=== PATIENT | male | born 1995 | race African-American/Black ===

== ENCOUNTER 2017-06-27 11:48 | Emergency (ER) | payer SELFPAY ==
[~2017-06-27] VITALS: Ht 170.2 cm; Wt 80.0 kg
[~2017-06-27 11:48] MED LIST: AUGM875 PO; LORT5TAB PO; Z.0.NO CURRENT MEDS
[2017-06-27 11:50] VITALS: BP 161/97; PULSE 146; RESP 18; TEMP 101.5; O2SAT 95
[2017-06-27 12:38] LABS: AUTOMATED NEUTROPHIL # 6.4 TH/MM3 (1.8-7.7); BASOPHIL % 0.2 % (0.0-2.0); EOSINOPHIL # 0.1 TH/MM3 (0-0.4); EOSINOPHIL % 1.3 % (0.0-4.0); HEMATOCRIT 39.6 % (39.0-51.0); HEMOGLOBIN 13.6 GM/DL (13.0-17.0); LYMPH % 5.6 % (9.0-44.0); LYMPHOCYTE # 0.5 TH/MM3 (1.0-4.8); MEAN CELL VOLUME 86.3 FL (80.0-100.0); MEAN CORPUSCULAR HEMOGLOBIN 29.7 PG (27.0-34.0); MEAN CORPUSCULAR HGB CONC 34.4 % (32.0-36.0); MEAN PLATELET VOLUME 6.9 FL (7.0-11.0); MONO % 13.6 % (0.0-8.0); MONOCYTE # 1.1 TH/MM3 (0-0.9); NEUT % 79.3 % (16.0-70.0); PLATELET COUNT 262 TH/MM3 (150-450); RED BLOOD COUNT 4.59 MIL/MM3 (4.50-5.90); RED CELL DISTRIBUTION WIDTH 11.9 % (11.6-17.2); WHITE BLOOD COUNT 8.1 TH/MM3 (4.0-11.0)
--- NOTE | 2017-06-27 12:49 | RADRPT ---
EXAM DATE/TIME: 06/27/2017 12:23 [place] COMPARISON: No previous studies available for comparison. INDICATIONS : Cough and flu like symptoms for 3 days MEDICAL HISTORY : None. SURGICAL HISTORY : None. ENCOUNTER: Initial ACUITY: 3 days PAIN SCORE: 0/10 LOCATION: Bilateral chest FINDINGS: PA and lateral views of the chest demonstrate the lungs to be symmetrically aerated without evidence of mass, infiltrate or effusion. The cardiomediastinal contours are unremarkable. Osseous structure s are intact. CONCLUSION: No acute cardiopulmonary disease. Kailash Nettles MD on June 27, 2017 at 12:46 Board Certified Radiologist. This report was verified electronically.
[2017-06-27] MEDS ORDERED: VITA10002 PO (12:59)
[2017-06-27] MEDS ORDERED: CHOL10008 (12:59)
[2017-06-27] MEDS ORDERED: LISI-515 PO (12:59)
[2017-06-27 13:04] VITALS: BP 149/83; PULSE 131; RESP 17; TEMP 99.9; O2SAT 97
[2017-06-27 13:04] LABS: ALBUMIN 4.4 GM/DL (3.4-5.0); AST (GOT) 13 U/L (15-37); BICARBONATE 23.5 MEQ/L (21.0-32.0); BLOOD UREA NITROGEN 11 MG/DL (7-18); CALCIUM 9.1 MG/DL (8.5-10.1); CHLORIDE 103 MEQ/L (98-107); CREATININE 1.12 MG/DL (0.60-1.30); GLOMERULAR FILTRATION RATE 100 ML/MIN (>89); GLUCOSE,RANDOM 118 MG/DL (74-106); SODIUM (NA) 136 MEQ/L (136-145)
[2017-06-27 13:07] LABS: ALKALINE PHOSPHATASE 73 U/L (45-117); ALT (GPT) 13 U/L (12-78); TOTAL BILIRUBIN ADULT 0.6 MG/DL (0.2-1.0); TOTAL PROTEIN 8.7 GM/DL (6.4-8.2)
[2017-06-27] MEDS ORDERED: SODIUM CHLOR 0.9% 1000 ML INJ 1,000 ML IV ONE ×2 (13:15→15:00)
[2017-06-27] MEDS ORDERED: IBUPROFEN 800 MG TAB PO ONE (13:15)
--- NOTE | 2017-06-27 13:34 | PD ---
HPI Chief Complaint: Cold / Flu Symptoms Time Seen by Provider: 13:03 Travel History International Travel<30 days: No Contact w/Intl Traveler<30days: No Traveled to known affect area: No History of Present Illness HPI 21-year-old male presents with cold and flu symptoms 24-36 hours. Patient reports fevers, body aches, chills. Patient reports that he has been around people that have had flulike symptoms. Patient also has cough and runny nose. He denies any nausea vomiting diarrhea. He is not taking anything for the symptoms to this point. FOR[facility]LY [facility] Past Medical History Asthma: Yes Hypertension: Yes Medical other: Yes (VERTIGO) Immunizations Current: Yes Influenza Vaccination: No Past Surgical History Appendectomy: Yes Social History Alcohol Use: No Tobacco Use: No Substance Use: No Allergies-Medications (Allergen,Severity, Reaction): Coded Allergies: No Known Allergies (Verified Adverse Reaction, Unknown, 06/27/17) Reported Meds & Prescriptions Reported Meds & Active Scripts Active Tamiflu (Oseltamivir Phosphate) 75 Mg Cap 75 Mg PO BID 5 Days Reported Vitamin B-12 (Cyanocobalamin) 1,000 Mcg Tab 1,000 Mcg PO DAILY Vitamin D3 (Cholecalciferol) 1,000 Unit Cap 1,000 Units DAILY Lisinopril 20 Mg Tab 20 Mg PO DAILY Review of Systems Except as stated in HPI: all other systems reviewed are Neg General / Constitutional: Positive: Fever, Chills HENT: No: Headaches, Neck Pain Cardiovascular: No: Chest Pain or Discomfort, Palpitations Respiratory: No: Cough, Shortness of Breath Gastrointestinal: No: Nausea, Vomiting, Abdominal Pain Genitourinary: Positive: Other (Darker urine than normal.), No: Frequency, Dysuria Musculoskeletal: Positive: Myalgias, No: Weakness Skin: No Rash, No Lesions Neurologic: No: Weakness, Dizziness, Headache, Change in Mentation, Seizures Physical Exam Narrative GENERAL: Well-developed well-nourished male in no acute respiratory distress. SKIN: Focused skin assessment warm/dry. HEAD: Atraumatic. Normocephalic. EYES: Pupils equal and round. No scleral icterus. No injection or drainage. ENT: No nasal bleeding or discharge. Mucous membranes pink and moist. NECK: Trachea midline. No JVD. CARDIOVASCULAR: Sinus tachycardia with a rate of the 120s. No murmur appreciated. RESPIRATORY: No accessory muscle use. Clear to auscultation. Breath sounds equal bilaterally. GASTROINTESTINAL: Abdomen soft, non-tender, nondistended. Hepatic and splenic margins not palpable. MUSCULOSKELETAL: No obvious deformities. No clubbing. No cyanosis. No edema. NEUROLOGICAL: Awake and alert. No obvious cranial nerve deficits. Motor grossly within normal limits. Normal speech. Data Data Last Documented VS Vital Signs Date Time Temp Pulse Resp B/P (MAP) Pulse Ox O2 Delivery O2 Flow Rate FiO2 06/27/17 13:04 99.9 131 17 149/83 (105) 97 Room Air Orders Orders Sepsis Workup Initiated (06/27/17 ) Complete Blood Count With Diff (06/27/17 12:02) Comprehensive Metabolic Panel (06/27/17 12:02) Urinalysis - C+S If Indicated (06/27/17 12:02) Lactic Acid Sepsis Protocol (06/27/17 12:02) Blood Culture (06/27/17 12:02) Iv Access Insert/Monitor (06/27/17 12:02) Influenzae A/B Antigen (06/27/17 12:02) Chest, Pa & Lat (06/27/17 ) Electrocardiogram (06/27/17 ) Sodium Chlor 0.9% 1000 Ml Inj (Ns 1000 M (06/27/17 13:15) Ibuprofen (Motrin) (06/27/17 13:15) Labs Laboratory Tests Test 06/27/17 12:15 06/27/17 13:05 White Blood Count 8.1 TH/MM3 Red Blood Count 4.59 MIL/MM3 Hemoglobin 13.6 GM/DL Hematocrit 39.6 % Mean Corpuscular Volume 86.3 FL Mean Corpuscular Hemoglobin 29.7 PG Mean Corpuscular Hemoglobin Concent 34.4 % Red Cell Distribution Width 11.9 % Platelet Count 262 TH/MM3 Mean Platelet Volume 6.9 FL Neutrophils (%) (Auto) 79.3 % Lymphocytes (%) (Auto) 5.6 % Monocytes (%) (Auto) 13.6 % Eosinophils (%) (Auto) 1.3 % Basophils (%) (Auto) 0.2 % Neutrophils # (Auto) 6.4 TH/MM3 Lymphocytes # (Auto) 0.5 TH/MM3 Monocytes # (Auto) 1.1 TH/MM3 Eosinophils # (Auto) 0.1 TH/MM3 Basophils # (Auto) 0.0 TH/MM3 CBC Comment DIFF FINAL Differential Comment Blood Urea Nitrogen 11 MG/DL Creatinine 1.12 MG/DL Random Glucose 118 MG/DL Total Protein 8.7 GM/DL Albumin 4.4 GM/DL Calcium Level 9.1 MG/DL Alkaline Phosphatase 73 U/L Aspartate Amino Transf (AST/SGOT) 13 U/L Alanine Aminotransferase (ALT/SGPT) 13 U/L Total Bilirubin 0.6 MG/DL Sodium Level 136 MEQ/L Potassium Level 3.5 MEQ/L Chloride Level 103 MEQ/L Carbon Dioxide Level 23.5 MEQ/L Anion Gap 10 MEQ/L Estimat Glomerular Filtration Rate 100 ML/MIN Lactic Acid Level 0.8 mmol/L Urine Color YELLOW Urine Turbidity CLEAR Urine pH 7.0 Urine Specific Barre 1.030 Urine Protein 30 mg/dL Urine Glucose (UA) NEG mg/dL Urine Ketones 10 mg/dL Urine Occult Blood NEG Urine Nitrite NEG Urine Bilirubin NEG Urine Urobilinogen 4.0 MG/DL Urine Leukocyte Esterase NEG Urine RBC 1 /hpf Urine WBC 1 /hpf Urine Squamous Epithelial Cells <1 /hpf Urine Mucus MOD /lpf Microscopic Urinalysis Comment CULT NOT INDICATED MDM Medical Decision Making Medical Screen Exam Complete: Yes Emergency Medical Condition: Yes Differential Diagnosis Influenza versus bronchitis versus viral syndrome Narrative Course 21-year-old male presents with flulike symptoms. Patient has fevers, chills, body aches. The patient has cough and runny nose.. Patient is positive for influenza A. He is within the 48 hour window and will be started on Tamiflu. Diagnosis Primary Impression: Influenza A Additional Instructions: Drink plenty of fluids. Motrin 600-800 mg every 6-8 hours for fever and body aches Med/Other Pt SpecificInfo: Prescription(s) given Scripts Oseltamivir (Tamiflu) 75 Mg Cap 75 MG PO BID for Mgmt Viral Infection for 5 Days, #10 CAP 0 Refills Prov: Norm Ortega MD 06/27/17 Disposition: 01 DISCHARGE HOME Condition: Stable Norm Ortega MD Jun 27, 2017 13:34
[2017-06-27] MEDS ORDERED: OSEL75 PO (13:35)
[2017-06-27 13:48] LABS: BILIRUBIN, URINE NEG (NEG); BLOOD, URINE NEG (NEG); GLUCOSE,URINE NEG (NEG); KETONE, URINE 10 mg/dL (NEG); MUCUS URINE MOD /lpf (OCC); NITRITE,URINE NEG (NEG); SQUAMOUS EPITHELIAL CELL URINE <1 /hpf (0-5); URINE COLOR YELLOW (YELLW/STRAW); URINE LEUKOCYTE ESTERASE NEG (NEG)
[2017-06-27 14:44] VITALS: BP 161/92; PULSE 114; RESP 14; TEMP 100.2; O2SAT 96
[2017-06-27] MEDS ORDERED: ACETAMINOPHEN 325 MG TAB PO ONE (15:00)
[2017-06-27 15:47] VITALS: TEMP 98.3
[2017-06-27 16:47] VITALS: BP 155/92; PULSE 110; RESP 14; O2SAT 96
--- NOTE | 2017-06-28 14:45 | EKG ---
Date Performed: 06/27/2017 Time Performed: 12:19:26 PTAGE: 21 years EKG: SINUS TACHYCARDIA POSSIBLE RIGHT VENTRICULAR CONDUCTION DELAY PROBABLE RIGHT ATRIAL ENLARGE MENT ABNORMAL RHYTHM ECG NO PREVIOUS TRACING DOCTOR: Zee Saucedo Interpretating Date/Time 06/28/2017 14:42:43
== END 2017-06-27 16:48 | disposition home or self-care (01) ==
LOC: NEPC 11:48
DX: J10.1 Influenza due to other identified influenza virus with other respiratory manifestations (principal); I10 Essential (primary) hypertension
CPT/HCPCS: 71046; 80053; 81001; 83605; 85025; 87040; 87804; 93005; 96360; 96361; 99285; J7030